=== PATIENT | female | born 1965 | race Caucasian/White ===

== ENCOUNTER 2017-12-14 00:14 | Emergency (ER) | payer SELFPAY ==
[~2017-12-14] VITALS: Ht 154.9 cm; Wt 91.0 kg
[2017-12-14 00:57] VITALS: BP 135/75
== END 2017-12-14 12:45 | disposition left against medical advice (07) ==
LOC: ER 12:45
DX: E11.65 Type 2 diabetes mellitus with hyperglycemia (principal); I10 Essential (primary) hypertension; Z90.49 Acquired absence of other specified parts of digestive tract; Z98.890 Other specified postprocedural states
CPT/HCPCS: 82962; 99282; Z7610